=== PATIENT | female | born 1980 | race Two or more races ===

== ENCOUNTER → 2020-01-03 | Outpatient (CLI) | payer BC ==
--- NOTE | 2020-01-03 13:06 | Diagnostic Imaging Report ---
Indication: Chronic left knee pain Technique: 3 views of the left knee Comparison: None Findings: No acute fractures. No dislocations. The joint spaces are preserved. No suprapatellar effusion. Impression: Negative
--- NOTE | 2020-01-03 14:07 | Diagnostic Imaging Report ---
Indication: Chronic right knee pain Technique: 3 views of the right knee Comparison: None Findings: No suprapatellar effusion. No acute fractures. No dislocations. Joint spaces are preserved Impression: Negative
== END | disposition home or self-care (01) ==
LOC: RAD 11:41
DX: M25.562 Pain in left knee (principal); M25.561 Pain in right knee; G89.29 Other chronic pain